=== PATIENT | female | born 1980 | race Caucasian/White ===

== ENCOUNTER 2020-03-27 12:22 | Inpatient (IN) ==
[2020-03-27] MEDS ORDERED: Buffered Lidocaine 1% SYRIN 1 ml INTRADERM ONE (12:57)
[2020-03-27] MEDS ORDERED: Lactated Ringers 1000 ml BAG 1,000 ML IV ONE (12:57)
[2020-03-27] MEDS ORDERED: Lactated Ringers 1000 ml BAG 1,000 ML IV SCH ×2 (13:00→18:00)
[2020-03-27] MEDS ORDERED: fentaNYL 100 mcg/2 ml 50 MCG/ML VIAL IV ONE (13:02)
[2020-03-27] MEDS ORDERED: Penicillin G Potassium IV 5,000,000 UNITS in NS 0.9% 100 ml BAG 100 ML IVPB ONE (13:05)
[2020-03-27 13:24] LABS: ABS Lymphocytes 1.8 10^3/ul (1.0-4.8); ABS Monocytes 0.5 10^3/ul (0-0.8); ABS Neutrophils 14.9 10^3/ul (1.5-7.7); Hematocrit 39 % (35-47); Hemoglobin 13.5 g/dL (12.0-16.0); Lymphocyte % 10.5 %; Mean Corpuscular HGB Conc 34 g/dL (31-36); Mean Corpuscular Hemoglobin 32 pg (27-31); Mean Corpuscular Volume 92 fL (80-97); Mean Platelet Volume 10.2 fL (7.4-10.4); Platelet Count 184 10^3/uL (150-450); Red Blood Count 4.27 10^6 /uL (3.70-4.87); Red Cell Distribution Width 14 % (10-15); White Blood Count 17.2 10^3/uL (3.5-10.8)
[2020-03-27] MEDS ORDERED: OBEPIDURAL 0 ML EPIDURAL ONE (14:46)
[2020-03-27] MEDS ORDERED: Oxytocin in LR 20 UNITS/1,000 ML BAG IVPB ONE (15:37)
[2020-03-27] MEDS ORDERED: Oxytocin in LR 20 UNITS/1,000 ML BAG IVPB SCH (17:00)
[2020-03-27] MEDS ORDERED: Witch Hazel PAD JAR TOPICAL PRN (17:21)
[2020-03-27] MEDS ORDERED: Penicillin G Potassium IV 3,000,000 UNITS in NS 0.9% 100 ml BAG 100 ML IVPB SCH (18:00)
[2020-03-27] MEDS ORDERED: Lidocaine 1% VIAL 10 MG/ML VIAL ONE (21:10)
[2020-03-27 21:55] LABS: Urine Benzodiazepine Screen None Detected (None Detect); Urine Cannabinoids Screen None Detected (None Detect); Urine Opiates Screen None Detected (None Detect)
[2020-03-28 08:55] LABS: ABS Basophils 0.1 10^3/ul (0-0.2); ABS Lymphocytes 3.4 10^3/ul (1.0-4.8); ABS Monocytes 1.2 10^3/ul (0-0.8); ABS Neutrophils 13.2 10^3/ul (1.5-7.7); Eosinophil % 0.2 %; Hematocrit 31 % (35-47); Hemoglobin 10.7 g/dL (12.0-16.0); Lymphocyte % 18.9 %; Mean Corpuscular HGB Conc 34 g/dL (31-36); Mean Corpuscular Hemoglobin 31 pg (27-31); Mean Corpuscular Volume 92 fL (80-97); Mean Platelet Volume 9.3 fL (7.4-10.4); Platelet Count 170 10^3/uL (150-450); Red Blood Count 3.41 10^6 /uL (3.70-4.87); Red Cell Distribution Width 14 % (10-15); White Blood Count 18.1 10^3/uL (3.5-10.8)
[2020-03-29 08:39] VITALS: BP 107/63
== END 2020-03-29 19:18 | disposition home or self-care (01) | DRG 807 ==
LOC: MCHOBOUT 12:22 → MCHOB 13:00
PROVIDERS: ADMIT Midwife; ATTEND Midwife

== ENCOUNTER 2023-11-26 10:08 | Inpatient (IN) ==
[2023-11-26] MEDS ORDERED: Lidocaine 1% VIAL 10 MG/ML 30 ML VIAL INJ PRN (10:37)
[2023-11-26] MEDS ORDERED: Nalbuphine 10 MG/ML 1 ML VIAL IV PRN (10:37)
[2023-11-26] MEDS ORDERED: Penicillin G Potassium IV 3,000,000 UNITS in NS 0.9% 100 ml BAG 100 ML IVPB SCH (11:00)
[2023-11-26] MEDS: Lactated Ringers 1000 ml BAG 1,000 ML IV SCH (11:20)
[2023-11-26] MEDS: Penicillin G Potassium IV 5,000,000 UNITS in NS 0.9% 100 ml BAG 100 ML IVPB ONE (11:43)
[2023-11-26 11:47] LABS: ABS Eosinophils 0.1 10^3/uL (0.0-0.5); ABS Lymphocytes 2.6 10^3/uL (1.0-4.8); ABS Monocytes 0.7 10^3/uL (0.0-0.9); ABS Neutrophils 6.4 10^3/uL (1.5-7.6); Eosinophil % 0.6 %; Hematocrit 34.9 % (35-45); Lymphocyte % 26.5 %; Mean Corpuscular Hemoglobin 30.3 pg (27-33); Mean Corpuscular Hgb Conc 34.4 g/dL (31-36); Platelet Count 205 10^3/uL (150-450); Red Blood Count 3.96 10^6/uL (3.63-4.92); Red Cell Distribution Width 14.2 % (12-17); White Blood Count 9.9 10^3/uL (3.8-11.8)
[2023-11-26 12:07] LABS: Urine Benzodiazepine Screen None Detected (None Detect); Urine Cannabinoids Screen None Detected (None Detect); Urine Opiates Screen None Detected (None Detect)
[2023-11-26] MEDS: Oxytocin in LR 20,000 MILLI.UNIT/1,000 ML BAG IV SCH ×2 (12:58→21:46)
[2023-11-26] MEDS: Penicillin G Potassium IV 3,000,000 UNITS in NS 0.9% 100 ml BAG 100 ML IVPB SCH (15:44)
[2023-11-26] MEDS: fentaNYL 100 mcg/2 ml 50 MCG/ML VIAL IV SLOW PU PRN (16:42)
[2023-11-26] MEDS ORDERED: Glycerin ADULT 2.4 gm SUPP PR PRN (21:36)
[2023-11-26] MEDS ORDERED: Witch Hazel PAD JAR TOPICAL PRN (21:36)
[2023-11-26] MEDS: Dibucaine 1% OINT 28.35 GM TUBE PR PRN (21:46)
[2023-11-26] MEDS ORDERED: Lactated Ringers 1000 ml BAG 1,000 ML IV SCH (22:00)
[2023-11-27] MEDS: Buffered Lidocaine 1% SYRIN 1 ml INTRADERM ONE (02:43)
[2023-11-27] MEDS: Lactated Ringers 1000 ml BAG 1,000 ML IV ONE (02:44)
[2023-11-27 06:53] LABS: ABS Basophils 0.1 10^3/uL (0.0-0.1); Eosinophil % 0.3 %; Hematocrit 36.4 % (35-45); Hemoglobin 12.2 g/dL (11.5-14.3); Lymphocyte % 18.8 %; Mean Corpuscular Hemoglobin 30.1 pg (27-33); Mean Corpuscular Hgb Conc 33.6 g/dL (31-36); Mean Corpuscular Volume 89.5 fL (80-97); Mean Platelet Volume 9.4 fL (7.5-11.2); Platelet Count 187 10^3/uL (150-450); Red Blood Count 4.07 10^6/uL (3.63-4.92); Red Cell Distribution Width 14.1 % (12-17); White Blood Count 16.2 10^3/uL (3.8-11.8)
[2023-11-28 10:33] VITALS: BP 89/56
== END 2023-11-28 19:30 | disposition home or self-care (01) | DRG 807 ==
LOC: MCHOBOUT 10:08 → MCHOB 10:29
PROVIDERS: ADMIT Advanced Practice Midwife; ATTEND Advanced Practice Midwife